=== PATIENT | female | born 1975 | race Caucasian/White ===

== ENCOUNTER 2016-11-19 16:55 | Emergency (ER) | payer OTHER ==
[2016-11-19 16:59] VITALS: BP 140/79; PULSE 99; RESP 20; TEMP 98.5
[2016-11-19] MEDS ORDERED: HYDROcodone/APAP 5-325MG 1 EACH TAB PO STA (17:04)
--- NOTE | 2016-11-19 17:07 | ED ---
General Adult HPI - General Chief complaint: Dental/Oral Stated complaint: Dental Pain Time Seen by Provider: 11/19/16 16:58 Source: patient, RN notes reviewed Mode of arrival: ambulatory Limitations: no limitations - History of Present Illness Initial comments: 41 yo female presents emergency 5 chief complaint of left-sided dental pain. Patient states that she fractured the tooth on the . Patient states that she called her dentist. Patient began her that there is a however it started to hurt today. Patient states she has continuous pain. Patient denies any fever chills difficulty opening the mouth any radiation into the neck. Patient was concerned due to her symptoms so she thought that she should be evaluated.Patient denies any recent fever, chills, shortness of breath, chest pain, back pain, abdominal pain, nausea vomiting, numbness or tingling, dysuria or hematuria, constipation or diarrhea, headaches or visual changes, or any other current symptoms. - Related Data Previous Rx's Medication Instructions Recorded Hydrocodone/Acetaminophen [Ramer 1 each PO Q6HR PRN #20 tab 11/19/16 5-325] Penicillin V Potassium [Pen Vee K] 500 mg PO TID #40 tab 11/19/16 Allergies Allergy/AdvReac Type Severity Reaction Status Date / Time sulfamethoxazole Allergy Swelling Verified 11/19/16 16:57 [From Bactrim] trimethoprim [From Bactrim] Allergy Swelling Verified 11/19/16 16:57 Review of Systems ROS Statement: Those systems with pertinent positive or pertinent negative responses have been documented in the HPI. ROS Other: All systems not noted in ROS Statement are negative. Past Medical History Past Medical History: No Reported History History of Any Multi-Drug Resistant Organisms: None Reported Past Surgical History: Tubal Ligation Past Psychological History: No Psychological Hx Reported Smoking Status: Never smoker Past Alcohol Use History: None Reported Past Drug Use History: None Reported General Exam Limitations: no limitations General appearance: alert, in no apparent distress Head exam: Present: atraumatic, normocephalic, normal inspection Eye exam: Present: normal appearance, PERRL, EOMI. Absent: scleral icterus, conjunctival injection, periorbital swelling ENT exam: Present: mucous membranes moist, other (Patient does appear to have a fractured tooth #17) Neck exam: Present: normal inspection. Absent: tenderness, meningismus, lymphadenopathy Respiratory exam: Present: normal lung sounds bilaterally. Absent: respiratory distress, wheezes, rales, rhonchi, stridor Cardiovascular Exam: Present: regular rate, normal rhythm, normal heart sounds. Absent: systolic murmur, diastolic murmur, rubs, gallop, clicks Neurological exam: Present: alert, oriented X3 Psychiatric exam: Present: normal affect, normal mood Skin exam: Present: warm, dry, intact, normal color. Absent: rash Course Vital Signs 11/19/16 16:58 Temperature 98.5 F Pulse Rate 99 Respiratory 20 Rate Blood Pressure 140/79 O2 Sat by Pulse 99 Oximetry Medical Decision Making - Medical Decision Making 41-year-old female presents emergency Department what appears to be a left thumb fracture. This discussed we will give her pain medication and antibiotics for home. Discussed close follow-up with her doctor with this. Patient questions. She stated that she understood and she is very plan. This time she'll be discharged home. Disposition Clinical Impression: Fracture of tooth Disposition: HOME SELF-CARE Condition: Stable Instructions: Toothache (ED) Additional Instructions: Please use medication as discussed. Please follow up with family doctor if symptoms have not improved over the next two days. Please return to the emergency room if your symptoms increase or worsen or for any other concerns. [facility] [place] [address] [phone] (existing clients only) For new clients: [phone] 1st consult: $50 (includes Xrays) Usually 30% less then private dentist for visits after. [employer] Have to pay $50 for Xrays anmd rest is covered. [phone] Prescriptions: Hydrocodone/Acetaminophen [Ramer 5-325] 1 each PO Q6HR PRN #20 tab PRN Reason: Pain Penicillin V Potassium [Pen Vee K] 500 mg PO TID #40 tab Referrals: Luann Stacy MD [STAFF PHYSICIAN] - 1-2 days Time of Disposition: 17:06
== END 2016-11-19 17:11 | disposition home or self-care (01) ==
LOC: EC 16:55
DX: S02.5XXA Fracture of tooth (traumatic), initial encounter for closed fracture (principal); Z88.1 Allergy status to other antibiotic agents; Z88.2 Allergy status to sulfonamides
CPT/HCPCS: 99282